=== PATIENT | female | born 1950 | race American Indian/Alaskan Native ===

== ENCOUNTER 2020-02-14 02:09 | Inpatient (IN) | payer OTHER, MEDICARE ==
[~2020-02-14] VITALS: Ht 152.4 cm; Wt 67.6 kg
[~2020-02-14 02:09] MED LIST: AMLODIPINE BESYL5 M1 PO; ANT12.5 PO; CLINDAMYCIN300 M1 PO; DOXYCYCLINE MO100 MG PO; ECO81 PO; LEVAQUIN750 MG PO; LIPI10 PO; METFORMIN HCL500 MG PO; PRILOSEC20 MG PO; PULMICORT0.5 MG/2 M IH; PULMICORT180 MCG/Ac IH
[2020-02-14 02:13] VITALS: Ht 152.4 cm; Wt 67.6 kg
[2020-02-14 02:38] LABS: BASOPHIL % 1.2 % (0-2); PLATELET COUNT 212 x10^3mcL (130-400); RED CELL DISTRIBUTION WIDTH 15.1 % (11.5-14.5)
[2020-02-14 02:56] LABS: CALCIUM 8.1 mg/dL (8.5-10.1); CARBON DIOXIDE 19.6 mmol/L (21-32); CHLORIDE SERUM 106 mmol/L (98-107); CREATININE SERUM 2.2 mg/dL (0.6-1.0); GLUCOSE SERUM 284 mg/dL (74-106); POTASSIUM SERUM 4.5 mmol/L (3.5-5.1); SODIUM SERUM 136 mmol/L (136-145)
[2020-02-14 03:00] LABS: ALBUMIN 3.4 g/dL (3.4-5.0); ALKALINE PHOSPHATASE 73 U/L (46-116); ALT/SGPT 39 U/L (14-59); AST/SGOT 43 U/L (15-37); BILIRUBIN TOTAL 0.4 mg/dL (0.20-1.00); LACTIC DEHYDROGENASE (LDH) 222 U/L (100-190)
[2020-02-14 03:03] LABS: C REACTIVE PROTEIN < 0.2 mg/dL (<=0.9)
[2020-02-14 08:30] VITALS: BP 126/58
[2020-02-14 09:52] LABS: CHOLESTEROL/HDL RATIO 2.5; MAGNESIUM 2.7 mg/dL (1.8-2.4); PHOSPHOROUS 5.1 mg/dL (2.5-4.9)
[2020-02-14 12:27] LABS: UA SPECIFIC GRAVITY 1.025 (1.005-1.035); microscopic required? YES; urine erythrocyte NEGATIVE (NEGATIVE)
[2020-02-14 12:28] VITALS: BP 152/87
[2020-02-14 12:45] LABS: AMPHETAMINE QUAL UR NONE DETECTED (See below)
[2020-02-14 17:30] VITALS: BP 112/58
[2020-02-14 20:00] VITALS: BP 123/79
[2020-02-15] VITALS: BP 114/62
[2020-02-15 04:00] VITALS: BP 133/97
[2020-02-15 05:38] LABS: BASOPHIL % 2.2 % (0-2); PLATELET COUNT 155 x10^3mcL (130-400); RED CELL DISTRIBUTION WIDTH 14.4 % (11.5-14.5)
[2020-02-15 06:02] LABS: C REACTIVE PROTEIN 0.9 mg/dL (<=0.9); CALCIUM 8.7 mg/dL (8.5-10.1); CHLORIDE SERUM 106 mmol/L (98-107); CREATININE SERUM 2.3 mg/dL (0.6-1.0); GLUCOSE SERUM 148 mg/dL (74-106); MAGNESIUM 2.4 mg/dL (1.8-2.4); PHOSPHOROUS 6.1 mg/dL (2.5-4.9); SODIUM SERUM 139 mmol/L (136-145)
[2020-02-15 09:20] VITALS: BP 124/57
[2020-02-15 14:28] VITALS: BP 134/69
[2020-02-15 17:26] VITALS: BP 108/51
[2020-02-15 20:55] VITALS: BP 126/66
[2020-02-16 05:15] VITALS: BP 122/73
[2020-02-16 06:59] LABS: CALCIUM 8.8 mg/dL (8.5-10.1); CARBON DIOXIDE 26.7 mmol/L (21-32); CHLORIDE SERUM 102 mmol/L (98-107); CREATININE SERUM 2.6 mg/dL (0.6-1.0); GLUCOSE SERUM 165 mg/dL (74-106); MAGNESIUM 2.2 mg/dL (1.8-2.4); PHOSPHOROUS 4.9 mg/dL (2.5-4.9); SODIUM SERUM 137 mmol/L (136-145)
[2020-02-16 07:09] LABS: BASOPHIL % 0.1 % (0-2); PLATELET COUNT 178 x10^3mcL (130-400); RED CELL DISTRIBUTION WIDTH 14.3 % (11.5-14.5)
[2020-02-16 07:33] VITALS: BP 118/62
[2020-02-16 13:17] VITALS: BP 109/51
[2020-02-16 17:17] VITALS: BP 105/64
[2020-02-16 20:45] VITALS: BP 117/63
[2020-02-17 05:35] VITALS: BP 107/65
[2020-02-17 09:03] VITALS: BP 105/60
[2020-02-17 12:24] VITALS: BP 97/53
[2020-02-17 17:22] VITALS: BP 97/53
[2020-02-17 18:53] VITALS: BP 121/67
[2020-02-17 21:11] VITALS: BP 124/55
[2020-02-18] VITALS (7 sets, daily range): BP systolic 95–123; BP diastolic 46–71
[2020-02-18 07:14] LABS: BASOPHIL % 1.7 % (0-2); PLATELET COUNT 174 x10^3mcL (130-400)
[2020-02-18 07:32] LABS: CALCIUM 8.4 mg/dL (8.5-10.1); CARBON DIOXIDE 27.7 mmol/L (21-32); CHLORIDE SERUM 103 mmol/L (98-107); CREATININE SERUM 2.5 mg/dL (0.6-1.0); GLUCOSE SERUM 79 mg/dL (74-106); POTASSIUM SERUM 4.3 mmol/L (3.5-5.1); SODIUM SERUM 139 mmol/L (136-145)
[2020-02-19 05:22] VITALS: BP 108/59
[2020-02-19 06:26] VITALS: BP 121/61
[2020-02-19 07:29] LABS: BASOPHIL % 0.4 % (0-2); PLATELET COUNT 192 x10^3mcL (130-400); RED CELL DISTRIBUTION WIDTH 13.6 % (11.5-14.5)
[2020-02-19 07:45] LABS: CALCIUM 8.6 mg/dL (8.5-10.1); CHLORIDE SERUM 103 mmol/L (98-107); CREATININE SERUM 2.2 mg/dL (0.6-1.0); GLUCOSE SERUM 165 mg/dL (74-106); POTASSIUM SERUM 4.2 mmol/L (3.5-5.1); SODIUM SERUM 138 mmol/L (136-145)
[2020-02-19 08:13] VITALS: BP 108/58
[2020-02-19 12:43] VITALS: BP 114/65
[2020-02-19] MEDS ORDERED: LIPI10 PO (14:22)
[2020-02-19] MEDS ORDERED: APR10 PO (14:23)
[2020-02-19] MEDS ORDERED: COR3 PO (14:24)
[2020-02-19] MEDS ORDERED: ECO81 PO (14:24)
[2020-02-19] MEDS ORDERED: PRI20 PO (14:25)
[2020-02-19] MEDS ORDERED: I5 PO (14:25)
[2020-02-19] MEDS ORDERED: MEDROL DOSEPAK4 MG PO (14:26)
[2020-02-19] MEDS ORDERED: LASIX40 MG PO (14:26)
[2020-02-19] MEDS ORDERED: CLEOCIN HCL300 MG PO (14:29)
[2020-02-19 17:25] VITALS: BP 112/56
[2020-02-19 18:06] VITALS: BP 112/56
== END 2020-02-19 19:40 | disposition home health service (06) | DRG 720 ==
LOC: ED 02:09 → DU 04:16 → IC 04:16 → DU 02-15 14:04
PROVIDERS: Emergency Medicine; Student in an Organized Health Care Education/Training Program; ADMIT Internal Medicine; ATTEND Internal Medicine
PROC: 5A09357 Assistance with Respiratory Ventilation, Less than 24 Consecutive Hours, Continuous Positive Airway Pressure (ICD-10-PCS; principal; 2020-02-14)
DX: A41.9 Sepsis, unspecified organism (principal); J96.01 Acute respiratory failure with hypoxia; N17.0 Acute kidney failure with tubular necrosis; I50.23 Acute on chronic systolic (congestive) heart failure; E11.22 Type 2 diabetes mellitus with diabetic chronic kidney disease; E83.51 Hypocalcemia; I42.9 Cardiomyopathy, unspecified; N18.4 Chronic kidney disease, stage 4 (severe); E11.65 Type 2 diabetes mellitus with hyperglycemia; I13.0 Hypertensive heart and chronic kidney disease with heart failure and stage 1 through stage 4 chronic kidney disease, or unspecified chronic kidney disease; Z20.828 Contact with and (suspected) exposure to other viral communicable diseases; I50.9 Heart failure, unspecified; J45.909 Unspecified asthma, uncomplicated; D64.9 Anemia, unspecified; Z79.899 Other long term (current) drug therapy
CPT/HCPCS: 82962; 83880; 87804; 94150; G0378; J0456; J0696; J1100; J1644; J1940; J2920; J3535; J7030; J7050; J7060; J7633; Q0092; U0003-CS